=== PATIENT | male | born 1965 | race Caucasian/White ===

== ENCOUNTER 2017-05-17 13:04 | Emergency (ER) | payer OTHER ==
[~2017-05-17] VITALS: Ht 177.8 cm; Wt 101.9 kg
[~2017-05-17 13:04] MED LIST: ALBUTEROL2.5 MG/3 M IH; ALEVE220 M2 PO; ASPIR 8181 M1 PO; AZITHROMYCIN250 MG1 PO; FLEXERIL10 MG PO; LEVAQUIN750 MG PO; LIDODERM 5% P1 PATCH TD; LISINOPRIL5 MG PO; LORTAB 5-325 M1 EACH PO; MOTRIN IB200 MG PO; MOTRIN600 MG PO; MULTIVITAMIN1 EAC2 PO; NOHOMEMEDS; PERCOCET 5/31 TABLET PO; PREDNISONE10 MG PO; PREDNISONE20 MG PO; PREDNISONE50 MG PO; PROVENTIL,2.5 MG/3 M IH; TRAMADOL HCL50 MG PO; TYLENOL WITH C1 EACH PO; ULTRAM50 MG PO; VENTOLIN HFA18 GM IH; ZITHROMAX Z-PA250 MG PO
[2017-05-17 13:43] LABS: HEMATOCRIT 48.3 % (38.0-50.0); MCH 31.5 PG (29.0-34.0); MCV 92.7 FL (86-99); PLATELET COUNT 320 K/uL (156-360); RBC DIS.WIDTH-CV 12.7 % (11.8-14.6); RBC DIS.WIDTH-SD 43.5 % (39-53); RED BLOOD COUNT 5.21 M/uL (4.00-5.50)
[2017-05-17 13:54] LABS: CHLORIDE 104 mEq/L (99-109); POTASSIUM 3.6 mEq/L (3.7-5.4); SODIUM 139 mEq/L (136-147)
[2017-05-17 13:55] LABS: GLUCOSE 123 mg/dL (70-99)
[2017-05-17 13:57] LABS: ANION GAP 12 MEQ/L (2-14)
[2017-05-17 13:59] LABS: GFR ESTIMATE (CALCULATED) > 59 mL/min/
[2017-05-17 14:00] LABS: UREA NITROGEN (BUN) 11 mg/dL (9-23)
[2017-05-17 14:54] LABS: D-DIMER ELISA < 150.00 ng/mLDDU (<230)
[2017-05-17] MEDS ORDERED: AZITHROMYCIN500 M1 PO (15:48)
[2017-05-17] MEDS ORDERED: PREDNISONE50 MG PO (15:48)
[2017-05-17 16:03] VITALS: BP 134/105
== END 2017-05-17 16:06 | disposition home or self-care (01) ==
LOC: EME 13:04
DX: J44.1 Chronic obstructive pulmonary disease with (acute) exacerbation (principal); F17.200 Nicotine dependence, unspecified, uncomplicated; I10 Essential (primary) hypertension; G89.29 Other chronic pain; M54.5 Low back pain; E78.5 Hyperlipidemia, unspecified; Z79.82 Long term (current) use of aspirin
CPT/HCPCS: 71020; 80048; 85027; 85379; 94640; 99281; 99284; 99285; J2930

== ENCOUNTER 2017-10-12 13:29 | Emergency (ER) | payer OTHER ==
[~2017-10-12] VITALS: Ht 177.8 cm; Wt 100.8 kg
[~2017-10-12 13:29] MED LIST changes: +AZITHROMYCIN500 M1 PO
[2017-10-12 14:38] LABS: HEMATOCRIT 49.3 % (38.0-50.0); MCH 30.9 PG (29.0-34.0); MCHC 34.5 G/DL (30.0-36.0); MCV 89.6 FL (86-99); PLATELET COUNT 236 K/uL (156-360); RBC DIS.WIDTH-CV 13.6 % (11.8-14.6); RBC DIS.WIDTH-SD 44.4 % (39-53); WHITE BLOOD COUNT 11.9 K/uL (4.1-10.2)
[2017-10-12 14:47] LABS: CHLORIDE 106 mEq/L (99-109)
[2017-10-12 14:48] LABS: POTASSIUM 4.2 mEq/L (3.7-5.4); SODIUM 137 mEq/L (136-147)
[2017-10-12 14:49] LABS: GLUCOSE 92 mg/dL (70-99)
[2017-10-12 14:53] LABS: CREATININE 0.8 mg/dL (0.6-1.3); GFR ESTIMATE (CALCULATED) > 59 mL/min/ (58.99-99999)
[2017-10-12 14:54] LABS: UREA NITROGEN (BUN) 7 mg/dL (9-23)
[2017-10-12] MEDS ORDERED: PREDNISONE20 MG PO (17:03)
[2017-10-12] MEDS ORDERED: ALBUTEROL2.5 MG/3 M IH (17:03)
[2017-10-12 17:18] VITALS: BP 144/101
[2017-10-12 17:49] LABS: THEOPHYLLINE 9.8 MCG/ML (10-20)
== END 2017-10-12 17:20 | disposition home or self-care (01) ==
LOC: EME 13:29
DX: R06.2 Wheezing (principal); J44.9 Chronic obstructive pulmonary disease, unspecified; F17.200 Nicotine dependence, unspecified, uncomplicated; I10 Essential (primary) hypertension; G89.29 Other chronic pain
CPT/HCPCS: 71046; 80048; 80198; 85027; 94640; 99281; 99284; J7512